=== PATIENT | female | born 1950 | race Caucasian/White ===

== ENCOUNTER 2020-01-19 01:22 | Inpatient (IN) | payer MEDICARE, OTHER ==
[~2020-01-19] VITALS: Ht 167.6 cm; Wt 61.7 kg
[2020-01-19] MEDS ORDERED: MAG HYDROX/AL HYDROX/SIMETH 30 ML UDC PO PRN (02:00)
[2020-01-19] MEDS ORDERED: ACETAMINOPHEN 325 MG TABLET PO PRN (02:00)
[2020-01-19] MEDS ORDERED: MAGNESIUM HYDROXIDE 30 ML UDC PO PRN (02:00)
[2020-01-19] MEDS ORDERED: BLOOD SUGAR DIAGNOSTIC 1 EACH STRIP IN ONE (02:30)
[2020-01-19 02:59] VITALS: BP 103/82
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
[2020-01-19] MEDS ORDERED: CARV12.52 PO (03:43)
[2020-01-19] MEDS ORDERED: TRAZ-182 PO (03:43)
[2020-01-19] MEDS ORDERED: SERT100T PO (03:43)
[2020-01-19] MEDS ORDERED: NIFE30TA91 PO (03:43)
[2020-01-19] MEDS ORDERED: ASPI-1169 PO (03:43)
[2020-01-19] MEDS ORDERED: NITR100C PO (03:43)
[2020-01-19] MEDS ORDERED: LISI-603 PO ×2 (03:43→07:51)
[2020-01-19] MEDS ORDERED: LORA-259 PO (03:43)
[2020-01-19] MEDS ORDERED: ATOR20TA PO (03:43)
[2020-01-19] MEDS ORDERED: GABA-532 PO (03:43)
--- NOTE | 2020-01-19 06:54 | NUR ---
GPS RN NOTE SPOKE TO DR. CHASE ABOUT MED RECON, STATED THAT MORNING DR WILL HANDLE IT, WILL PASS IT ON TO UPCOMING NURSE AND CONTINUE TO MONITOR THE PT Q15 MIN FOR SAFETY AND BEHAVIOR.
[2020-01-19 08:00] VITALS: BP 114/50
[2020-01-19] MEDS: ASPIRIN 81 MG TAB.CHEW PO SCH (08:45)
[2020-01-19] MEDS: LORAZEPAM 0.5 MG TABLET PO PRN ×2 (08:45→16:20)
--- NOTE | 2020-01-19 08:45 | NUR ---
given ativan for nerves.
[2020-01-19] MEDS ORDERED: NIFEdipine XL (30MG) 30 MG TAB PO SCH (09:00)
[2020-01-19] MEDS ORDERED: LISINOPRIL (20MG) 20 MG TABLET PO SCH ×2 (09:00)
[2020-01-19] MEDS ORDERED: CARVEDILOL 12.5 MG TABLET PO SCH (09:00)
[2020-01-19] MEDS ORDERED: GABAPENTIN 100 MG CAPSULE PO SCH (09:00)
--- NOTE | 2020-01-19 10:00 | NUR ---
dr. gutierrez here and aware pt's requests.spent good amt. of time with pt.
[2020-01-19] MEDS: GABAPENTIN 100 MG CAPSULE PO SCH ×3 (12:09→21:09)
[2020-01-19] MEDS: SERTRALINE HCL 50 MG TABLET PO SCH (12:09)
[2020-01-19] MEDS: risperiDONE 0.25 MG TABLET PO SCH ×2 (12:11→17:38)
[2020-01-19] MEDS ORDERED: NITROFURANTOIN MACROCRYSTAL 50 MG CAPSULE PO SCH (14:00)
[2020-01-19] MEDS: NITROFURANTOIN MACROCRYSTAL 100 MG CAPSULE PO SCH ×2 (14:46→21:19)
[2020-01-19] MEDS: NIFEdipine XL (30MG) 30 MG TAB PO SCH ×2 (14:47→21:10)
[2020-01-19] MEDS: LISINOPRIL (20MG) 20 MG TABLET PO SCH ×2 (14:47→21:09)
[2020-01-19] MEDS: CARVEDILOL 12.5 MG TABLET PO SCH ×2 (14:49→21:09)
[2020-01-19 16:00] VITALS: BP 145/67
--- NOTE | 2020-01-19 16:31 | NUR ---
just medicated for nerves with ativan.
[2020-01-19 20:07] VITALS: BP 136/89
[2020-01-19] MEDS ORDERED: NITROFURANTOIN/NITROFURAN MAC 100 MG CAPSULE ONE (21:09)
[2020-01-19] MEDS: ATORVASTATIN 10 MG TABLET PO SCH (22:19)
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
[2020-01-20 06:27] LABS: BASOPHILS # (AUTO) 0.1 /CMM (0.0-0.2); BASOPHILS % (AUTO) 0.8 % (0.0-2.0); EOSINOPHILS % (AUTO) 3.1 % (0.0-6.0); HEMATOCRIT 35 % (33-45); HEMOGLOBIN 11.8 g/dL (11.5-14.8); LYMPHOCYTES # (AUTO) 1.1 /CMM (0.8-4.8); LYMPHOCYTES % (AUTO) 17.1 % (20.0-44.0); MEAN CORPUSCULAR HGB CONC 34 g/dl (31.0-36.0); MEAN CORPUSCULAR VOLUME 88 fL (82-100); MONOCYTES # (AUTO) 0.6 /CMM (0.1-1.30); MONOCYTES % (AUTO) 9.9 % (2.0-12.0); NEUTROPHILS # (AUTO) 4.3 /CMM (1.8-8.9); NEUTROPHILS % (AUTO) 69.1 % (43.0-81.0); PLATELET COUNT (AUTO) 247 /CMM (150-450); RED BLOOD CELL COUNT(AUTO) 3.96 MIL/uL (4.0-5.2); WHITE BLOOD COUNT (AUTO) 6.3 K/uL (4.3-11.0)
--- NOTE | 2020-01-20 06:52 | NUR ---
GPS RN CLOSING NOTE: PT SLEEPING COMFORTABLY, NO S/S OF ANY DISTRESS. RESPIRATION EVEN AND UNLABORED WITH EQUAL RISE AND FALL OF THE CHEST. ALL PT NEEDS MET. WILL CONTINUE TO MONITOR AND ENDORSE TO AM SHIFT.
[2020-01-20 07:14] LABS: CALCIUM, SERUM 8.7 mg/dL (8.5-10.1); CREATININE 0.8 mg/dL (0.6-1.3); POTASSIUM 3.6 mmol/L (3.5-5.1)
[2020-01-20 08:00] VITALS: BP 145/80
[2020-01-20] MEDS: NITROFURANTOIN MACROCRYSTAL 100 MG CAPSULE PO SCH ×2 (08:50→20:15)
[2020-01-20] MEDS: GABAPENTIN 100 MG CAPSULE PO SCH ×4 (08:50→21:11)
[2020-01-20] MEDS: SERTRALINE HCL 50 MG TABLET PO SCH ×2 (08:51→13:12)
[2020-01-20] MEDS: risperiDONE 0.25 MG TABLET PO SCH ×2 (08:51→17:00)
[2020-01-20] MEDS: ASPIRIN 81 MG TAB.CHEW PO SCH (08:51)
[2020-01-20] MEDS: LORAZEPAM 0.5 MG TABLET PO PRN ×2 (09:39→17:20)
--- NOTE | 2020-01-20 09:40 | NUR ---
RN NOTE: ANXIETY PT C/O INCREASING ANXIETY. RUMINATING RE BELONGINGS AND DISCHARGE. UNABLE TO CALM SELF USING PERSONAL COPING SKILLS. MEDICATED WITH ATIVAN O.5 MG PO PRN
[2020-01-20] MEDS: NIFEdipine XL (30MG) 30 MG TAB PO SCH ×2 (14:28→21:15)
[2020-01-20] MEDS: LISINOPRIL (20MG) 20 MG TABLET PO SCH ×2 (14:29→21:12)
[2020-01-20] MEDS: CARVEDILOL 12.5 MG TABLET PO SCH ×2 (14:29→21:13)
[2020-01-20 16:00] VITALS: BP 141/73
--- NOTE | 2020-01-20 17:21 | NUR ---
RN NOTE: ANXIETY PT C/O INCREASING ANXIETY. REQUESTING ATIVAN. ATIVAN PO PRN ADMINISTERED
[2020-01-20 19:16] LABS: APPEARANCE,URINE CLEAR (CLEAR); BILIRUBIN,URINE NEGATIVE (NEGATIVE); BLOOD, URINE NEGATIVE Ery/uL (NEGATIVE); COLOR,URINE YELLOW (YELLOW); KETONES,URINE NEGATIVE (NEGATIVE); LEUKOCYTE ESTERASE ,URINE MODERATE (NEGATIVE); NITRITE, URINE NEGATIVE (NEGATIVE); PROTEIN,URINE NEGATIVE (NEGATIVE); UGLUCOSE NEGATIVE (NEGATIVE); URINE SODIUM, RANDOM 39 mmol/l (40-220); UROBILINOGEN,URINE 0.2 EU/dL (0.2)
[2020-01-20 19:32] LABS: OSMOLALITY,URINE 276 mOS/kg (340-1090)
[2020-01-20 19:59] VITALS: BP 134/62
[2020-01-20] MEDS: ATORVASTATIN 10 MG TABLET PO SCH (22:13)
[2020-01-21] MEDS: TEMAZEPAM 7.5 MG CAPSULE PO PRN ×2 (00:54→23:13)
--- NOTE | 2020-01-21 00:55 | NUR ---
RN NOTES: INSOMNIA PT. C/O UNABLE TO SLEEP. RESTORIL 7.5 MG PO PRN ,GIVEN PER PT. REQUEST, WILL CONTINUE TO MONITOR.
[2020-01-21 06:53] LABS: BASOPHILS % (AUTO) 0.7 % (0.0-2.0); EOSINOPHILS % (AUTO) 2.7 % (0.0-6.0); HEMATOCRIT 34 % (33-45); HEMOGLOBIN 11.5 g/dL (11.5-14.8); LYMPHOCYTES # (AUTO) 1.4 /CMM (0.8-4.8); LYMPHOCYTES % (AUTO) 21.1 % (20.0-44.0); MEAN CORPUSCULAR HGB CONC 34 g/dl (31.0-36.0); MEAN CORPUSCULAR VOLUME 88 fL (82-100); MONOCYTES # (AUTO) 0.6 /CMM (0.1-1.30); MONOCYTES % (AUTO) 9.3 % (2.0-12.0); NEUTROPHILS # (AUTO) 4.3 /CMM (1.8-8.9); NEUTROPHILS % (AUTO) 66.2 % (43.0-81.0); PLATELET COUNT (AUTO) 233 /CMM (150-450); RED BLOOD CELL COUNT(AUTO) 3.83 MIL/uL (4.0-5.2); WHITE BLOOD COUNT (AUTO) 6.6 K/uL (4.3-11.0)
[2020-01-21 07:09] LABS: CALCIUM, SERUM 8.6 mg/dL (8.5-10.1); CREATININE 0.7 mg/dL (0.6-1.3); MAGNESIUM 2.3 mg/dL (1.8-2.4); POTASSIUM 3.7 mmol/L (3.5-5.1)
[2020-01-21 08:00] VITALS: BP 148/74
[2020-01-21] MEDS: risperiDONE 0.25 MG TABLET PO SCH ×2 (08:43→16:17)
[2020-01-21] MEDS: SERTRALINE HCL 50 MG TABLET PO SCH ×2 (08:44→13:54)
[2020-01-21] MEDS: GABAPENTIN 100 MG CAPSULE PO SCH ×4 (08:44→21:30)
[2020-01-21] MEDS: ASPIRIN 81 MG TAB.CHEW PO SCH (08:44)
[2020-01-21] MEDS: NITROFURANTOIN MACROCRYSTAL 100 MG CAPSULE PO SCH ×2 (08:44→21:41)
--- NOTE | 2020-01-21 11:56 | NUR ---
WOUND CARE CONSULT: PT REFUSED SKIN ASSESSMENT AND DENIES NEED FOR WOUND CONSULT. PT IS AMBULATORY AND CONTINENT WITH CURRENT LULI SCORE OF 22. WILL SEE PRN.
--- NOTE | 2020-01-21 11:56 | NUR ---
Social Work Initial Discharge Plan: Patient currently resides at [address] [place] [address]; ([phone]) and lives with her roommate Noble. Per pt, she would like to return back home. This bid writer contacted pt's sister Sharron ([phone]) and gathered collateral. Per sister Sharron, she is aware and agreeble with discharge plan. This bid writer will work with the family, MD, and treatment team to provide proper discharge.
--- NOTE | 2020-01-21 11:57 | NUR ---
Social Work Coordination of Care: This racebook writer received a call from pt's RN Mel ([phone]) who wanted an update on pt's status. Pt receives outpatient services from [facility] and will continue to after discharge ([phone]).
--- NOTE | 2020-01-21 11:57 | NUR ---
Social Work Family Contact: This process description writer contacted pt's sister Sharron ([phone]) and gathered collateral. Per sister Sharron, she is aware and agreeble with discharge plan.
[2020-01-21] MEDS: CARVEDILOL 12.5 MG TABLET PO SCH ×2 (13:54→21:32)
[2020-01-21] MEDS: LISINOPRIL (20MG) 20 MG TABLET PO SCH ×2 (13:54→21:31)
[2020-01-21] MEDS: NIFEdipine XL (30MG) 30 MG TAB PO SCH ×2 (13:58→21:32)
[2020-01-21] MEDS: LORAZEPAM 0.5 MG TABLET PO PRN ×2 (14:48→20:09)
[2020-01-21 16:00] VITALS: BP 154/88
[2020-01-21 19:50] VITALS: BP 141/93
[2020-01-21] MEDS: ATORVASTATIN 10 MG TABLET PO SCH (21:31)
--- NOTE | 2020-01-22 07:00 | NUR ---
GPS RN OPENING NOTES RECEIVED PT RESTING IN BED AT THIS TIME. A/O X 4, NO SOB NOTED, NO S/S OF ANY ACUTE DISTRESS NOTED. NO C/O PAIN AT THIS TIME. RESPIRATIONS ARE EVEN AND UNLABORED WITH EQUAL RISE AND FALL IN CHEST. PT ABLE TO MAKE NEEDS KNOWN. ENCOURAGED PT TO VERBALIZED ANY FEELING OR CONCERNED. DENIES SI/HI. PT COMPLIANT TO CARE.SAFETY PRECAUTION IN PLACE AND MAINTAINED AT ALL TIMES. BED IN LOWEST LOCKED POSITION, HOB ELEVATED, RAILS UP X 2, CALL LIGHT WITHIN REACH. WILL CONTINUE TO MONITOR FOR SAFETY BEHAVIOR Q15 AND PER PROTOCOL
[2020-01-22 07:20] LABS: THYROID STIMULATING HORMONE 1.331 uIU/mL (0.358-3.74)
[2020-01-22 08:00] VITALS: BP 138/76
[2020-01-22] MEDS: ASPIRIN 81 MG TAB.CHEW PO SCH (08:26)
[2020-01-22] MEDS: SERTRALINE HCL 50 MG TABLET PO SCH ×2 (08:26→13:17)
[2020-01-22] MEDS: LORAZEPAM 0.5 MG TABLET PO PRN ×2 (08:27→16:45)
[2020-01-22] MEDS: GABAPENTIN 100 MG CAPSULE PO SCH ×3 (08:27→16:45)
--- NOTE | 2020-01-22 08:27 | NUR ---
PT C/O OF ANXIETY, VS WNL. ATIVAN 0.5MG PO Q6HRS PRN ADMINISTERED FOR ANXIETY PER ORDER. WILL CONTINUE TO MONITOR
[2020-01-22] MEDS: risperiDONE 0.25 MG TABLET PO SCH ×2 (08:28→16:46)
[2020-01-22 09:00] VITALS: BP 138/76
[2020-01-22] MEDS: NITROFURANTOIN MACROCRYSTAL 100 MG CAPSULE PO SCH ×2 (09:28→21:11)
[2020-01-22] MEDS: NIFEdipine XL (30MG) 30 MG TAB PO SCH ×2 (13:16→21:09)
[2020-01-22] MEDS: CARVEDILOL 12.5 MG TABLET PO SCH ×2 (13:17→21:08)
[2020-01-22] MEDS: LISINOPRIL (20MG) 20 MG TABLET PO SCH ×2 (13:18→21:10)
[2020-01-22 16:00] VITALS: BP 128/69
--- NOTE | 2020-01-22 16:45 | NUR ---
PT C/O OF ANXIETY, VS WNL. PER PT REQUEST, ATIVAN 0.5MG PO Q6HRS PRN ADMINISTERED FOR ANXIETY PER ORDER AT THIS TIME. WILL CONTINUE TO MONITOR
--- NOTE | 2020-01-22 18:32 | NUR ---
GPS RN CLOSING NOTES PT RESTING IN BED AT THIS TIME. PT REMAINED STABLE THROUGHOUT SHIFT. PT KEPT CLEAN AND DRY. ALL CARE, NEEDS, MEDICATION AND TREATMENT ADMINISTERED ANTICIPATED PER ORDER. SAFETY PRECAUTION IN PLACE AND MAINTAINED AT ALL TIMES. BED IN LOWEST LOCKED POSITION, HOB ELEVATED, RAILS UP, CALL LIGHT WITHIN REACH. WILL ENDORSE TO STEM MOUNTER NURSE FOR LEATHA
[2020-01-22 20:48] VITALS: BP 130/75
[2020-01-22] MEDS: ATORVASTATIN 10 MG TABLET PO SCH (21:08)
[2020-01-22] MEDS: GABAPENTIN 300 MG CAPSULE PO SCH (21:10)
[2020-01-22] MEDS: TEMAZEPAM 7.5 MG CAPSULE PO PRN (23:13)
--- NOTE | 2020-01-22 23:15 | NUR ---
GPS RN NOTE: PT CAME OUT OF ROOM AND STATED "I CAN'T SLEEP CAN I HAVE SOMETHING FOR SLEEP", PTS VSS, ADMINISTERED PRN RESTORIL @2313, WILL REASSESS AND CONTINUE TO MONITOR Q15MIN FOR SAFETY AND BEHAVIOR.
[2020-01-23 06:40] LABS: BASOPHILS # (AUTO) 0.1 /CMM (0.0-0.2); BASOPHILS % (AUTO) 0.8 % (0.0-2.0); EOSINOPHILS % (AUTO) 1.3 % (0.0-6.0); HEMATOCRIT 34 % (33-45); HEMOGLOBIN 11.6 g/dL (11.5-14.8); LYMPHOCYTES # (AUTO) 1.5 /CMM (0.8-4.8); LYMPHOCYTES % (AUTO) 20.9 % (20.0-44.0); MEAN CORPUSCULAR HGB CONC 34 g/dl (31.0-36.0); MEAN CORPUSCULAR VOLUME 88 fL (82-100); MONOCYTES # (AUTO) 0.6 /CMM (0.1-1.30); MONOCYTES % (AUTO) 8.4 % (2.0-12.0); NEUTROPHILS # (AUTO) 4.8 /CMM (1.8-8.9); NEUTROPHILS % (AUTO) 68.6 % (43.0-81.0); PLATELET COUNT (AUTO) 245 /CMM (150-450); RED BLOOD CELL COUNT(AUTO) 3.88 MIL/uL (4.0-5.2)
[2020-01-23 06:41] LABS: CREATININE 0.8 mg/dL (0.6-1.3); MAGNESIUM 2.1 mg/dL (1.8-2.4); PHOSPHORUS 3.3 mg/dL (2.5-4.9); POTASSIUM 3.9 mmol/L (3.5-5.1)
[2020-01-23 08:00] VITALS: BP 133/69
[2020-01-23] MEDS: ASPIRIN 81 MG TAB.CHEW PO SCH (09:06)
[2020-01-23] MEDS: risperiDONE 0.25 MG TABLET PO SCH (09:06)
[2020-01-23] MEDS: NITROFURANTOIN MACROCRYSTAL 100 MG CAPSULE PO SCH ×2 (09:07→20:41)
[2020-01-23] MEDS: SERTRALINE HCL 50 MG TABLET PO SCH ×2 (09:07→12:54)
[2020-01-23] MEDS: GABAPENTIN 100 MG CAPSULE PO SCH ×3 (09:07→17:28)
--- NOTE | 2020-01-23 09:22 | NUR ---
MIL Individual Therapy: This curriculum writer met with patient for brief therapy. Pt stated that she was depressed at home and was not eating and she had lost 80 pounds. Pt reported that because of COVID she became depressed because she had to stay home. Pt shared that she was unable to visit her 90 year old father due to COVID and missed him. This curriculum writer encouraged pt to facetime or zoom her family members at home. This curriculum writer actively listened and provided emotional support.
--- NOTE | 2020-01-23 12:53 | NUR ---
RN NOTE:PATIENT C/O ANXIETY MEDICATED WITH ATIVAN 0.5MG WILL CONTINUE TO MONITOR .
[2020-01-23] MEDS: LORAZEPAM 0.5 MG TABLET PO PRN (12:54)
[2020-01-23] MEDS: LISINOPRIL (20MG) 20 MG TABLET PO SCH ×2 (13:27→21:15)
[2020-01-23] MEDS: NIFEdipine XL (30MG) 30 MG TAB PO SCH ×2 (13:27→21:16)
[2020-01-23] MEDS: CARVEDILOL 12.5 MG TABLET PO SCH ×2 (13:28→21:16)
[2020-01-23 16:00] VITALS: BP 132/77
[2020-01-23] MEDS: risperiDONE 1 MG TABLET PO SCH (17:28)
[2020-01-23 20:31] VITALS: BP 122/72
[2020-01-23] MEDS: GABAPENTIN 300 MG CAPSULE PO SCH (21:15)
[2020-01-23] MEDS: ATORVASTATIN 10 MG TABLET PO SCH (21:15)
[2020-01-23] MEDS: TEMAZEPAM 7.5 MG CAPSULE PO PRN (22:32)
--- NOTE | 2020-01-23 22:33 | NUR ---
RN NOTES: INSOMNIA PT. C/O UNABLE TO SLEEP. RESTORIL 7.5 MG PO PRN ,GIVEN PER PT. REQUEST, WILL CONTINUE TO MONITOR.
[2020-01-24 07:51] VITALS: BP 138/70
--- NOTE | 2020-01-24 07:55 | NUR ---
GPS RN NOTE: opening Patient is awake and alert x3. Denies SI/HI/VAH. States she feels her symptoms were from not eating and sleeping but while she has been here, "I have been eating". still c/o poor sleep r/t anxiety especially about physical health. Patient has fear of having stroke in her sleep. Bed is in low and locked position with side rails up for safety. Breakfast delivered bedside. Will continue to monitor for mood, safety and behavior.
[2020-01-24 08:00] VITALS: BP 138/70
[2020-01-24] MEDS: SERTRALINE HCL 50 MG TABLET PO SCH ×2 (08:14→12:30)
[2020-01-24] MEDS: GABAPENTIN 100 MG CAPSULE PO SCH ×3 (08:14→17:25)
[2020-01-24] MEDS: risperiDONE 1 MG TABLET PO SCH (08:14)
[2020-01-24] MEDS: ASPIRIN 81 MG TAB.CHEW PO SCH (08:14)
[2020-01-24] MEDS: NITROFURANTOIN MACROCRYSTAL 100 MG CAPSULE PO SCH ×2 (08:15→21:21)
[2020-01-24] MEDS: LORAZEPAM 0.5 MG TABLET PO PRN (11:48)
--- NOTE | 2020-01-24 11:50 | NUR ---
GPS RN Note: Ativan patient c/o anxiety and requested ativan. 0.5 mg administered as ordered. will continue to monitor Q15 for mood, safety and behavior
--- NOTE | 2020-01-24 12:42 | NUR ---
SW Referral: This telegraphic typewriter operator sent clinicals for IOP Program in [facility] ([phone]) and faxed it to Mame ([phone]) and stated that a SW will contact this telegraphic typewriter operator.
--- NOTE | 2020-01-24 12:51 | NUR ---
Social Work Coordination of Care: This comic writer contacted [facility] ([phone]) and spoke with Christin who arranged an appointment with 's psychiatrist Dr. Rick on January 31 at 4:30PM. This comic writer faxed patient's clinicals ([phone]).
--- NOTE | 2020-01-24 13:41 | NUR ---
Social Work Coordination of Care: This publicity writer contacted [facility] ([phone]) and spoke with Marie android developer who scheduled an appointment with primary doctor Ksahif on February 13 at 3:45PM.
[2020-01-24 13:58] VITALS: BP 152/76
[2020-01-24] MEDS: CARVEDILOL 12.5 MG TABLET PO SCH ×2 (13:59→21:21)
[2020-01-24] MEDS: NIFEdipine XL (30MG) 30 MG TAB PO SCH ×2 (13:59→21:21)
[2020-01-24] MEDS: LISINOPRIL (20MG) 20 MG TABLET PO SCH ×2 (13:59→21:22)
[2020-01-24 16:00] VITALS: BP 149/84
[2020-01-24 19:54] VITALS: BP 132/82
[2020-01-24] MEDS ORDERED: risperiDONE 1 MG TABLET PO SCH (21:00)
[2020-01-24] MEDS: GABAPENTIN 300 MG CAPSULE PO SCH (21:19)
[2020-01-24] MEDS: ATORVASTATIN 10 MG TABLET PO SCH (21:19)
[2020-01-24] MEDS: TEMAZEPAM 7.5 MG CAPSULE PO PRN (22:09)
--- NOTE | 2020-01-24 22:11 | NUR ---
GPS RN NOTE: INSOMNIA PT COMPLAINED OF HAVING INSOMNIA AND REQUESTED RESTORIL. VITALS, BP: 135/65, HR: 71, O2:99% RA, ADMINISTERED RESTORIL PRN @ 2209 WILL REASSESS AND CONTINUE TO MONITOR Q15MIN FOR SAFETY AND BEHAVIOR.
--- NOTE | 2020-01-24 22:11 | NUR ---
GPS RN NOTE, RECEIVED PATIENT AWAKE AND IN BED, NO S/S OR COMPLAINTS OF PAIN AT THIS TIME. PATIENT IS DISPLAYING NO S/S OF APPARENT DISTRESS AT THIS TIME. PATIENT BREATHING IS UNLABORED WITH EQUAL RISE AND FALL OF THE CHEST. PATIENT IS ALERT AND ORIENTED X 3 ON ROOM AIR WITH A SPO2 96%. PATIENT IS COMPLIANT WITH MEDICATIONS, DEPRESSED, DEMANDING, AND COOPERATIVE. PATIENT DENIES SUICIDAL AND HOMICIDAL IDEATIONS AT THIS TIME. PATIENT ASSISTED WITH TURNING AND REPOSITIONING Q2HR AND PRN FOR COMFORT AND CIRCULATION. PATIENT HAS NO NEEDS AT THIS TIME. PATIENT EDUCATED ON THE USE OF THE CALL LYON. PATIENT BED SIDE RAILS UP X 2 FOR SAFETY. PATIENT BED IS LOCKED, LOW, WITH BED ALARM ON. WILL CONTINUE TO MONITOR THIS PATIENT Q15 MINUTES WITH THE HELP OF STAFF TO MAINTAIN SAFETY.
[2020-01-25 06:38] LABS: BASOPHILS % (AUTO) 0.6 % (0.0-2.0); EOSINOPHILS % (AUTO) 1.2 % (0.0-6.0); HEMATOCRIT 33 % (33-45); HEMOGLOBIN 11.3 g/dL (11.5-14.8); LYMPHOCYTES # (AUTO) 1.2 /CMM (0.8-4.8); MEAN CORPUSCULAR HGB CONC 35 g/dl (31.0-36.0); MEAN CORPUSCULAR VOLUME 88 fL (82-100); MONOCYTES # (AUTO) 0.6 /CMM (0.1-1.30); MONOCYTES % (AUTO) 7.8 % (2.0-12.0); NEUTROPHILS # (AUTO) 5.8 /CMM (1.8-8.9); NEUTROPHILS % (AUTO) 75.4 % (43.0-81.0); PLATELET COUNT (AUTO) 231 /CMM (150-450); RED BLOOD CELL COUNT(AUTO) 3.73 MIL/uL (4.0-5.2); WHITE BLOOD COUNT (AUTO) 7.8 K/uL (4.3-11.0)
[2020-01-25 07:02] LABS: CREATININE 0.8 mg/dL (0.6-1.3); MAGNESIUM 2.2 mg/dL (1.8-2.4); PHOSPHORUS 3.4 mg/dL (2.5-4.9); POTASSIUM 3.8 mmol/L (3.5-5.1)
[2020-01-25 08:00] VITALS: BP 128/71
[2020-01-25] MEDS: ASPIRIN 81 MG TAB.CHEW PO SCH (08:22)
[2020-01-25] MEDS: GABAPENTIN 100 MG CAPSULE PO SCH ×3 (08:22→17:10)
[2020-01-25] MEDS: SERTRALINE HCL 50 MG TABLET PO SCH ×2 (08:22→12:28)
[2020-01-25] MEDS: NITROFURANTOIN MACROCRYSTAL 100 MG CAPSULE PO SCH ×2 (08:23→20:41)
[2020-01-25] MEDS: risperiDONE 1 MG TABLET PO SCH (08:23)
[2020-01-25] MEDS ORDERED: MISCELLANEOUS MED 1 EA EA XX ONE (11:00)
--- NOTE | 2020-01-25 11:55 | NUR ---
SW Referral: This marketing copywriter sent clinicals for IOP Program in [facility] ([phone]) and left a voicemail to call back this marketing copywriter to confirm if pt is accepted or not.
--- NOTE | 2020-01-25 12:06 | NUR ---
MIL Coordination of Care: This fiction and nonfiction prose writer received a phone call from Lyn JAEGER ([phone]) who stated that pt is accepted to the [facility] [address] [place] [address] but will be via TELEHEALTH. Per Lyn, she stated that she will need to do an assessment when pt discharges home.
[2020-01-25] MEDS: NIFEdipine XL (30MG) 30 MG TAB PO SCH ×2 (13:27→20:46)
[2020-01-25] MEDS: CARVEDILOL 12.5 MG TABLET PO SCH ×2 (13:28→20:42)
[2020-01-25] MEDS: LISINOPRIL (20MG) 20 MG TABLET PO SCH ×2 (14:31→20:43)
[2020-01-25] MEDS: LORAZEPAM 0.5 MG TABLET PO PRN (15:00)
[2020-01-25 16:00] VITALS: BP 115/71
[2020-01-25 19:30] VITALS: BP 119/69
[2020-01-25] MEDS: TRAZODONE 50 MG TABLET PO SCH (20:42)
[2020-01-25] MEDS: GABAPENTIN 300 MG CAPSULE PO SCH (20:42)
[2020-01-25] MEDS: risperiDONE 0.25 MG TABLET PO SCH (20:44)
[2020-01-25] MEDS: ATORVASTATIN 10 MG TABLET PO SCH (21:14)
[2020-01-26 08:00] VITALS: BP 116/68
[2020-01-26] MEDS: ASPIRIN 81 MG TAB.CHEW PO SCH (08:34)
[2020-01-26] MEDS: SERTRALINE HCL 50 MG TABLET PO SCH ×2 (08:34→12:30)
[2020-01-26] MEDS: risperiDONE 1 MG TABLET PO SCH (08:34)
[2020-01-26] MEDS: GABAPENTIN 100 MG CAPSULE PO SCH ×3 (08:34→16:33)
[2020-01-26] MEDS: CARVEDILOL 12.5 MG TABLET PO SCH ×2 (13:54→21:21)
[2020-01-26] MEDS: LISINOPRIL (20MG) 20 MG TABLET PO SCH ×2 (13:55→21:20)
[2020-01-26] MEDS: NIFEdipine XL (30MG) 30 MG TAB PO SCH ×2 (13:55→21:22)
[2020-01-26 16:00] VITALS: BP 131/94
[2020-01-26] MEDS: risperiDONE 0.25 MG TABLET PO SCH (20:05)
[2020-01-26 20:21] VITALS: BP 132/67
[2020-01-26] MEDS: GABAPENTIN 300 MG CAPSULE PO SCH (21:20)
[2020-01-26] MEDS: TRAZODONE 50 MG TABLET PO SCH (21:21)
[2020-01-26] MEDS: ATORVASTATIN 10 MG TABLET PO SCH (21:22)
[2020-01-26] MEDS: TEMAZEPAM 7.5 MG CAPSULE PO PRN (22:12)
--- NOTE | 2020-01-26 22:33 | NUR ---
GPS RN NOTE: INSOMNIA PT STATED "CAN I HAVE MY SLEEPING PILL I NEED HELP SLEEPING, I HAVENT HAD GOOD SLEEP". BP: 131/71, HR:67, O2: 98 RA, RR: 18, ADMIN RESTORIL PRN @ 4810
[2020-01-27 07:18] LABS: BASOPHILS % (AUTO) 0.7 % (0.0-2.0); EOSINOPHILS % (AUTO) 0.9 % (0.0-6.0); HEMATOCRIT 33 % (33-45); HEMOGLOBIN 11.2 g/dL (11.5-14.8); LYMPHOCYTES # (AUTO) 1.3 /CMM (0.8-4.8); LYMPHOCYTES % (AUTO) 20.2 % (20.0-44.0); MEAN CORPUSCULAR HGB CONC 34 g/dl (31.0-36.0); MEAN CORPUSCULAR VOLUME 88 fL (82-100); MONOCYTES # (AUTO) 0.6 /CMM (0.1-1.30); MONOCYTES % (AUTO) 8.5 % (2.0-12.0); NEUTROPHILS # (AUTO) 4.5 /CMM (1.8-8.9); NEUTROPHILS % (AUTO) 69.7 % (43.0-81.0); PLATELET COUNT (AUTO) 248 /CMM (150-450); RED BLOOD CELL COUNT(AUTO) 3.77 MIL/uL (4.0-5.2); WHITE BLOOD COUNT (AUTO) 6.5 K/uL (4.3-11.0)
[2020-01-27 07:43] LABS: CREATININE 0.8 mg/dL (0.6-1.3); MAGNESIUM 2.2 mg/dL (1.8-2.4); PHOSPHORUS 3.8 mg/dL (2.5-4.9); POTASSIUM 4.1 mmol/L (3.5-5.1)
[2020-01-27 08:00] VITALS: BP 121/63
[2020-01-27] MEDS: ASPIRIN 81 MG TAB.CHEW PO SCH (08:13)
[2020-01-27] MEDS: risperiDONE 1 MG TABLET PO SCH (08:13)
[2020-01-27] MEDS: SERTRALINE HCL 50 MG TABLET PO SCH ×2 (08:13→12:56)
[2020-01-27] MEDS: GABAPENTIN 100 MG CAPSULE PO SCH ×3 (08:13→16:08)
[2020-01-27] MEDS: LORAZEPAM 0.5 MG TABLET PO PRN (12:56)
[2020-01-27] MEDS: NIFEdipine XL (30MG) 30 MG TAB PO SCH ×2 (13:49→21:18)
[2020-01-27] MEDS: LISINOPRIL (20MG) 20 MG TABLET PO SCH ×2 (13:49→21:19)
[2020-01-27] MEDS: CARVEDILOL 12.5 MG TABLET PO SCH ×2 (13:58→21:19)
[2020-01-27 15:59] LABS: APPEARANCE,URINE CLEAR (CLEAR); BILIRUBIN,URINE NEGATIVE (NEGATIVE); BLOOD, URINE NEGATIVE Ery/uL (NEGATIVE); COLOR,URINE YELLOW (YELLOW); KETONES,URINE NEGATIVE (NEGATIVE); LEUKOCYTE ESTERASE ,URINE SMALL (NEGATIVE); NITRITE, URINE NEGATIVE (NEGATIVE); PROTEIN,URINE NEGATIVE (NEGATIVE); UGLUCOSE NEGATIVE (NEGATIVE); UROBILINOGEN,URINE 0.2 EU/dL (0.2)
[2020-01-27 16:00] VITALS: BP 113/59
[2020-01-27] MEDS: risperiDONE 0.25 MG TABLET PO SCH (20:04)
[2020-01-27] MEDS: TRAZODONE 50 MG TABLET PO SCH (20:04)
[2020-01-27 20:35] VITALS: BP 111/63
[2020-01-27] MEDS: GABAPENTIN 300 MG CAPSULE PO SCH (21:19)
[2020-01-27 22:12] VITALS: BP 112/60
[2020-01-27] MEDS: ATORVASTATIN 10 MG TABLET PO SCH (22:14)
[2020-01-27] MEDS: TEMAZEPAM 7.5 MG CAPSULE PO PRN (22:15)
--- NOTE | 2020-01-27 22:16 | NUR ---
GPS RN NOTE: INSOMNIA PT STATED "CAN I HAVE MY SLEEPING PILL I NEED HELP SLEEPING, I HAVE A SLEEPING MED?" VITALS WNL. NO RESP DISTRESS. BREATHING EVEN AND UNLABORED. ADMIN RESTORIL ORDER PRN. CONTINUER TO MONITOR.
[2020-01-28 06:49] VITALS: BP 124/71
[2020-01-28] MEDS: LORAZEPAM 0.5 MG TABLET PO PRN (06:55)
--- NOTE | 2020-01-28 06:56 | NUR ---
GPS RN NOTES: ANXIOUS PT C/O OF FEELING ANXIOUS FOR THE MRI THAT IS SCHEDULE AT 0800 AM. PT REQUESTED ATIVAN. VITALS CHECKED WNL. OFFERED ATIVAN 0.5 MG PO PRN ORDERED. PT TOLERATED MEDICATION WELL. CONTINUE TO MONITOR.
--- NOTE | 2020-01-28 07:30 | NUR ---
GPS RN NOTE RECEIVED PATIENT AWAKE AND IN BED, PT IS AOX3. NO S/S OR COMPLAINTS OF PAIN AT THIS TIME. NO CARDIAC OR RESPIRATORY DISTRESS NOTED. PATIENT BREATHING IS UNLABORED WITH EQUAL RISE AND FALL OF THE CHEST. SATURATING WELL ON ROOM AIR. PATIENT IS COMPLIANT WITH MEDICATIONS, DEPRESSED, DEMANDING, AND COOPERATIVE. PATIENT DENIES SUICIDAL AND HOMICIDAL IDEATIONS AT THIS TIME. PT IS AMBULATRORY WITH STEADY GAIT. PATIENT HAS NO NEEDS AT THIS TIME. PATIENT EDUCATED ON THE USE OF THE CALL LYON. PATIENT BED SIDE RAILS UP X 2 FOR SAFETY. PATIENT BED IS LOCKED, LOW, WITH BED ALARM ON. WILL CONTINUE TO MONITOR THIS PATIENT Q15 MINUTES WITH THE HELP OF STAFF TO MAINTAIN SAFETY.
[2020-01-28 08:00] VITALS: BP 126/66
[2020-01-28] MEDS: ASPIRIN 81 MG TAB.CHEW PO SCH (08:28)
[2020-01-28] MEDS: GABAPENTIN 100 MG CAPSULE PO SCH ×3 (08:28→16:24)
[2020-01-28] MEDS: risperiDONE 1 MG TABLET PO SCH (08:29)
[2020-01-28] MEDS: SERTRALINE HCL 50 MG TABLET PO SCH ×2 (08:29→12:03)
--- NOTE | 2020-01-28 08:36 | NUR ---
Discharge Note: Patient will be discharged home [address] [place] [address]; ([phone]). Patients sister Sharron ([phone]) will last picker patient at 1PM. Patients sister Sharron ([phone]) is aware and agreeable. Upon discharge, patient appear to be calm, cooperative and happy to be going home. Pt appeared to be alert and oriented x4 (time, place, self and situation). Patient denies suicidal and homicidal ideation as well as auditory and visual hallucinations. Patient will follow up with (Psychiatrist) Dr. Rick on January 31 at 4:30PM VIA TELEHEALTH located at [facility] [address] [place] [address]; ([phone]) and will follow up with (Primary Doctor) Dr. Rowland on February 13 at 3:45PM VIA TELEHEALTH [facility] [address] [place] [address]; ([phone]). Lyn JAEGER ([phone]) who stated that patient is accepted to the [facility] [address] [facility] [place], but will be via telehealth upon discharge.
--- NOTE | 2020-01-28 10:30 | NUR ---
MRI PT LEFT UNIT WITH OUTSIDE SALESMAN FOR SCHEDULED MRI OF THE LUMBAR SPINE.
--- NOTE | 2020-01-28 11:00 | NUR ---
SEEN BY HOSPITALIST PT WAS SEEN BY DR. BAHENA TODAY. PER DR. BAHENA, ONCE MRI OF LUMBAR SPINE IS DONE, TO RELAY RESULTS TO DR. CABRERA (NEUROLOGY). PER DR. BAHENA, LONG DR. CABRERA CLEARS PT FOR DISCHARGE THEN PT CAN GO HOME.
--- NOTE | 2020-01-28 12:30 | NUR ---
MRI RESULTS/DR. CABRERA RELAYED MRI RESULTS TO DR. CABRERA. PER DR. CABRERA, HE WOULD LIKE TO SPEAK WITH CUTCH CLEANER/SALES CORRESPONDENT. PT IS STILL PENDING TO BE CLEARED FOR DISCHARGE.
[2020-01-28] MEDS: NIFEdipine XL (30MG) 30 MG TAB PO SCH (13:11)
[2020-01-28] MEDS: CARVEDILOL 12.5 MG TABLET PO SCH (13:12)
[2020-01-28] MEDS: LISINOPRIL (20MG) 20 MG TABLET PO SCH (13:12)
--- NOTE | 2020-01-28 13:24 | NUR ---
Family Contact: MIL contacted pt's sister Sharron ([phone]) and informed her that the MD has concerns about the pts MRI and that he is possibly suggesting that the pt be discharged to a SNF. MIL stated that she will confirm with the MD and call her back if the pts discharge is cancelled for today.
--- NOTE | 2020-01-28 13:25 | NUR ---
MD Contact: MIL called Dr. Calzada's office ([phone]) and left a message with the telephone operator receptionist stating that the SW needs to speak to the MD regarding a pt who is supposed to be discharged soon.
--- NOTE | 2020-01-28 13:45 | NUR ---
MD Contact: MIL met with Dr. Calzada ([phone]) who stated that he would like this pt to be discharged to the medical floor where she can see a digital content specialist before being discharged back home.
--- NOTE | 2020-01-28 14:00 | NUR ---
NEURO CONSULT PT WAS SEEN BY DR. CABRERA. PER DR. CABRERA, HE WANTS TO TRANSFER PT TO THE [facility], AND HAVE PT BE CONSULTED BY NEUROSURGERY.
--- NOTE | 2020-01-28 14:01 | NUR ---
Family Contact: MIL contacted pt's sister, Sharron ([phone]), and informed her that the pt is going to be discharged to the medical floor of the hospital to see a precision agriculture specialist.
--- NOTE | 2020-01-28 14:03 | NUR ---
Discharge Note: Pt was discharged to the medical floor due to an issue that was brought up with the pts MRI. Addendum: 01/29/20 at 1411 by HOA JAEGER Pt was not discharged to the Medical Floor.
[2020-01-28 16:00] VITALS: BP 127/71
--- NOTE | 2020-01-28 16:15 | NUR ---
Discharge Note: Patient will be discharged home [address] [place] [address]; ([phone]). Patients sister Sharron ([phone]) will pick out hand patient at 6PM. Patients sister Sharron ([phone]) is aware and agreeable. Upon discharge, patient appear to be calm, cooperative and happy to be going home. Pt appeared to be alert and oriented x4 (time, place, self and situation). Patient denies suicidal and homicidal ideation as well as auditory and visual hallucinations. Patient will follow up with (Psychiatrist) Dr. Rick on January 31 at 4:30PM VIA TELEHEALTH located at [facility] [address] [place] [address]; ([phone]) and will follow up with (Primary Doctor) Dr. Rowland on February 13 at 3:45PM VIA TELEHEALTH [facility] [address] [place] [address]; ([phone]). Lyn JAEGER ([phone]) who stated that patient is accepted to the [facility] [address] [facility], but will be via telehealth upon discharge.
--- NOTE | 2020-01-28 17:30 | NUR ---
NEURO-SURGERY CONSULT PT WAS SEEN BY DR. DAVIS, NEUROSURGERY. PER HE WILL TRANSFER PT TO [facility]. NURSING SANDWICH BOARD CARRIER MADE AWARE AWAITING FOR BED ASSIGNMENT FROM [facility]. Addendum: 01/28/20 at 1756 by QUINN MONTES RN PER DR. DAVIS, PT MIGHT POTENTIALLY HAVE A LUMBAR FUSION IF PT AGREES.
--- NOTE | 2020-01-28 18:00 | NUR ---
CANCEL TRANSFER TO [facility] PT NOW CHANGED HER MIND, SHE STATES THAT SHE WANTS TO GO HOME INSTEAD. NOTIFIED DR. BAHENA, PER DR. BAHENA OKAY TO D/C LONG OKAY WITH PSYCHIATRIST.
--- NOTE | 2020-01-28 18:15 | NUR ---
CALLED SISTER CALLED PTS SISTER CRISTHIAN TO PICK PT UP, STATED THEY WILL BE HERE AT 7PM TO CENSUS TAKER PT.
--- NOTE | 2020-01-28 19:14 | NUR ---
DISCHARGE HOME PT WAS DISCHARGED HOME IN STABLE CONDITION. PT WAS PICKED UP BY SISTER CRISTHIAN. ALL D/C INSTRUCTIONS, PAPERWORK AND PACKET PROVIDED TO PT WELL PRESCRIPTIONS. INSTRUCTED PT TO [facility] A F/U APPT WITH PCP, PSYCHIATRIST AND NEUROLOGIST RADHA FOR FOLLOW UP. INSTRUCTED PT TO GO TO THE NEAREST ER IF SHE FEELS LIKE SHE WANTS TO GURT HERSELF OR OTHERS, CHEST PAIN OR RESP DISTRESS. PT AGREED. PATIENT AWAKE AND IN BED, PT IS AOX3. NO S/S OR COMPLAINTS OF PAIN AT THIS TIME. NO CARDIAC OR RESPIRATORY DISTRESS NOTED. PATIENT BREATHING IS UNLABORED WITH EQUAL RISE AND FALL OF THE CHEST. SATURATING WELL ON ROOM AIR. PATIENT IS COMPLIANT WITH MEDICATIONS, NO SUICIDAL OR HOMICIDAL IDEATIONS, DENIES AUDITORY OR CVISUAL OR TACTILE HALLUCINATIONS. PT IS AMBULATRORY WITH STEADY GAIT. PT LEFT IN STABLE CONDITION. VS STABLE.
== END 2020-01-28 19:00 | disposition home or self-care (01) | DRG 885 ==
LOC: GPS 01:22
PROVIDERS: ADMIT Psychiatry & Neurology Psychosomatic Medicine
DX: F33.3 Major depressive disorder, recurrent, severe with psychotic symptoms (principal); N39.0 Urinary tract infection, site not specified; F23 Brief psychotic disorder; E22.2 Syndrome of inappropriate secretion of antidiuretic hormone; I10 Essential (primary) hypertension; F41.9 Anxiety disorder, unspecified; Z86.73 Personal history of transient ischemic attack (TIA), and cerebral infarction without residual deficits; I25.10 Atherosclerotic heart disease of native coronary artery without angina pectoris; E78.5 Hyperlipidemia, unspecified; F42.9 Obsessive-compulsive disorder, unspecified; R63.1 Polydipsia; M21.372 Foot drop, left foot; M54.16 Radiculopathy, lumbar region; G62.9 Polyneuropathy, unspecified
CPT/HCPCS: 36415; 72110-TC; 72148-TC; 80048-TC; 80061-TC; 81000-TC; 82962-TC; 83735-TC; 83935-TC; 84100-TC; 84207; 84300-TC; 84439-TC; 84443-TC; 84480; 84550-TC; 85025-TC; 87081-TC